=== PATIENT | male | born 1955 | race Caucasian/White ===

== ENCOUNTER → 2019-09-13 | Outpatient (CLI) | payer BC, OTHER | LOC: SJCVCIMAG 07:41 → NUC 09:47 → SJCVCIMAG 11:47 | DX: I65.23 Occlusion and stenosis of bilateral carotid arteries (principal); I35.1 Nonrheumatic aortic (valve) insufficiency; I25.10 Atherosclerotic heart disease of native coronary artery without angina pectoris; I10 Essential (primary) hypertension; E78.5 Hyperlipidemia, unspecified; Z79.82 Long term (current) use of aspirin; Z79.899 Other long term (current) drug therapy; Z82.49 Family history of ischemic heart disease and other diseases of the circulatory system ==

== ENCOUNTER → 2020-04-01 | Outpatient (CLI) | payer BC, OTHER ==
[~2020-04-01] MED LIST: ASA81BEC PO; FAMCYCLOVIR 50500 M1 PO; LISINOPRIL-HCT1 EAC1 PO; LOPRESSOR50 MG PO; REPATHA SU140 MG/1 M; REVATIO20 MG PO
== END ==
LOC: LAB 08:00
PROVIDERS: ATTEND Internal Medicine
DX: Z01.812 Encounter for preprocedural laboratory examination (principal); Z20.828 Contact with and (suspected) exposure to other viral communicable diseases

== ENCOUNTER → 2020-04-03 | Outpatient (CLI) | payer BC, OTHER ==
[~2020-04-03] VITALS: Ht 167.6 cm; Wt 78.9 kg
[2020-04-03 07:11] VITALS: BP 161/96
--- NOTE | 2020-04-03 09:58 | CATHLAB ---
[facility] [place] [address] INVASIVE PROCEDURE REPORT Name: ELIF WARD Room #: REG LIA Buitrago.#: [id number] Admission: 04/03/20 Attend Phys: Archie Verde MD, Discharge: Date of : 59 Report #: [id number] THIS REPORT FOR: cc: Clovis Schwartz MD, Samuel D. MD Lundgren, Craig H. MD [facility] ~ APPROVED REPORT Study performed: 04/03/2020 07:55:55 Patient Details Patient Status: Out-Patient Room #: The patient is a 64 year-old male Event Personnel Archie Verde Planishing Hammer Operator, Leonel Brown RN RN, Marisol Boss Paschal, Ja'net RTR Monitor Procedures Performed Left Heart Cath w/or w/o Coronaries [id number] [facility] Supravalvular Aortography Injection [id number] ISVA Art Access - R femoral artery* Hemostasis w/ Mynx 28697 Initial Mod Sed Same Phys/QHP Gr5y 303218 69864 Mod Sed Same Phys/QHP Ea 443174 Indication Chest pain Procedure Narrative The patient was brought electively to the Cardiac Catheterization Laboratory and was prepped and draped in a sterile manner. The Right Groin^ was infiltrated with 1% Lidocaine subcutaneous anesthesia. A PINNACLE 6FR Sheath #[id number] sheath was inserted into the RFA^. Coronary angiography was performed using coronary diagnostic catheters. The left coronary system was accessed and visualized with a 6FR JL 4.5 #[id number] catheter. The left ventricle was accessed and visualized with a PIGTAIL catheter. Closure device was deployed with a Fr MYNXGRIP 6/7F #[id number]. The patient tolerated the procedure well and there were no complications associated with the procedure. There was no hematoma. Attempted to visualize the right coronary system with a JR4, 6FR 3DRC and 6FR AR MOD. Intraoperative Conscious Sedation Sedation start time: 8:22 Case end Time: 9:20 [facility] [address] [place] [address] INVASIVE PROCEDURE REPORT Name: ELIF WARD Room #: REG [facility]#: [id number] Admission: 04/03/20 Attend Phys: Archie Verde, Discharge: Date of : 59 Report #: [id number] Fentanyl 100 mcg Versed 2 mg Fluoro Time: 16.90 minutes Dose: DAP 22864.00 cGycm2 2753 mGy Contrast Type and Amount: Omnipaque 315 ml Coronary Angiography The patient's coronary anatomy is left dominant. Diagnostic Cath Left Main Short with moderate plaquing LAD Densely calcified LAD throughout its proximal and mid portions. 75% ostial LAD stenosis with moderate diffuse calcific stenosis throughout the proximal portion of the LAD Circumflex 80% ostial circumflex stenosis 95% proximal circumflex before the origin of the first marginal branch. OM1 85% ostial OM1 branch stenosis. This is a large bifurcating vessel L PDA No significant disease within a small posterior descending branch L IDALIA Mild plaquing Right Coronary Small, nondominant and probably occluded at the aorta. Left Ventriculography The left ventricle is normal in size with normal contractility. The left ventricular ejection fraction is estimated to be 60-65%. Left ventricular wall motion abnormalities are not present. There is no mitral insufficiency. Multiple attempts with multiple catheters were used at to engage the right coronary without success. Aortography was performed in both the JERICHO and REEVES view projections without identification of the right coronary. Trileaflet aortic valve without insufficiency. This is a left dominant system. I suspect the right coronary is small, nondominant and probably occluded at the aorta. Hemodynamics The aortic pressure is 127/64 mmHg with a mean of 89 mmHg. The left ventricular pressure is 148/10 mmHg with a mean of mmHg. The left ventricular end diastolic pressure is 22 mmHg. Pullback from the left ventricle to the aorta revealed no gradient across the aortic valve. [facility] [address] [place] [address] INVASIVE PROCEDURE REPORT Name: ELIF WARD Room #: REG Philippe#: [id number] Admission: 04/03/20 Attend Phys: Archie Verde, Discharge: Date of : 59 Report #: [id number] Conclusion 1. Normal global and regional left ventricular systolic function. EF 65% 2. Severe densely calcified multivessel coronary disease. Left dominant circulation 3. The right coronary was probably small, nondominant and occluded the aorta. This was not selectively engaged and not seen by aortography. Recommendations CABG <ELECTRONICALLY SIGNED> By: Archie Verde MD, FACC 04/03/20957 7 7 Archie Verde MD, FACC /INF
== END ==
LOC: CATH 06:43
PROVIDERS: ATTEND Internal Medicine
DX: R07.9 Chest pain, unspecified (principal); I25.119 Atherosclerotic heart disease of native coronary artery with unspecified angina pectoris; E78.5 Hyperlipidemia, unspecified; I10 Essential (primary) hypertension; I65.23 Occlusion and stenosis of bilateral carotid arteries; Z79.899 Other long term (current) drug therapy; Z79.82 Long term (current) use of aspirin; Z98.890 Other specified postprocedural states

== ENCOUNTER → 2020-04-17 | Outpatient (CLI) | payer BC, OTHER | LOC: SJCVCIMAG 10:37 | PROVIDERS: ATTEND Surgery Vascular Surgery | DX: Z01.818 Encounter for other preprocedural examination (principal); I25.10 Atherosclerotic heart disease of native coronary artery without angina pectoris ==

== ENCOUNTER → 2020-04-18 | Outpatient (CLI) | payer BC, OTHER ==
[~2020-04-18] MED LIST changes: +FERREX 150 PLU1 EAC1 PO; +LISINOPRIL10 MG PO; +PACERONE 200 M200 M1 PO; +TOPROL XL50 MG PO
== END ==
LOC: LAB 07:26
PROVIDERS: ATTEND Surgery Vascular Surgery
DX: Z01.812 Encounter for preprocedural laboratory examination (principal); Z20.828 Contact with and (suspected) exposure to other viral communicable diseases

== ENCOUNTER 2020-04-24 06:05 | Inpatient (IN) | payer BC, OTHER ==
--- NOTE | 2020-04-18 13:37 | EKG ---
[facility] [place] [address] ELECTROCARDIOGRAM REPORT Name: ELIF WARD Room #: PRE IN M.R.#: [id number] Admission: Attend Phys: Gianni Garcia MD Discharge: Date of : 59 Report #: [id number] THIS REPORT FOR: cc: Clovis Schwartz MD, Samuel D. MD Santiago,Zack MURPHY [facility] ~ THIS REPORT FOR: //name// [facility] Test Date: 2020-04-18 Test Time: 13:28:11 Pat Name: ELIF WARD Department: Room: Gender: Engineer Exhauster: GALI LEMONS : 1955 Requested By: Gianni Garcia Order Number: [id number] MD: Zack Blum Measurements Intervals [place] Rate: 68 P: 12 ND: 171 QRS: -4 QRSD: 85 T: 1 QT: 372 QTc: 396 Interpretive Statements Sinus rhythm Abnormal R-wave progression, early transition Borderline T abnormalities, inferior leads No previous ECG available for comparison Electronically Signed On 04-18-2020 13:37:50 CDT by Zack Blum [email or web address] <ELECTRONICALLY SIGNED> By: Zack Blum MD, [facility] 04/18/20 1337 1328 1328 Zack Blum MD, [facility] /EPI
[2020-04-18 13:49] LABS: URINE BILIRUBIN NEGATIVE (Negative); URINE BLOOD TRACE (Negative); URINE CLARITY CLEAR; URINE COLOR YELLOW; URINE GLUCOSE-RANDOM* NEGATIVE (Negative); URINE KETONES NEGATIVE (Negative); URINE LEUKOCYTES-REFLEX NEGATIVE (Negative); URINE NITRITE-REFLEX NEGATIVE (Negative); URINE PROTEIN (DIPSTICK) NEGATIVE (Negative); URINE SPECIFIC GRAVITY >= 1.030 (1.005-1.035); URINE UROBILINOGEN 0.2 E.U./dl (0.2-1.0)
[2020-04-18 13:49] LABS: HEMATOCRIT 44.2 % (42.0-52.0); HEMOGLOBIN 14.7 gm/dL (14.0-18.0); MCH 31.3 pg (26.0-34.0); MCHC 33.2 g/dL (28.0-37.0); MCV 94.2 fL (80.0-100.0); PLATELET COUNT 284 thou/uL (150-400); RDW 13.8 % (10.5-14.5); WBC 4.8 thou/uL (4.0-11.0)
[2020-04-18 14:04] LABS: APTT 30.8 Seconds (24.5-32.8); CREATININE 0.9 mg/dL (0.7-1.3); POTASSIUM 4.5 mmol/L (3.5-5.1); PROTIME 10.2 Seconds (9.3-11.4); TOTAL BILIRUBIN 0.5 mg/dL (0.2-1.0); TOTAL PROTEIN 8.6 g/dL (6.4-8.2)
[2020-04-18 14:16] LABS: ABSOLUTE NEUTROPHILS 2.6 thou/uL (1.4-8.2)
[2020-04-19 04:06] LABS: GLYCOHEMOGLOBIN (HGB A1C) 5.6 % (4.8-5.6)
[2020-04-24] VITALS (10 sets, daily range): BP systolic 104–160; BP diastolic 61–88
[~2020-04-24] VITALS: Ht 167.6 cm; Wt 79.5 kg
[~2020-04-24 06:05] MED LIST changes: -FERREX 150 PLU1 EAC1 PO; -LISINOPRIL10 MG PO; -PACERONE 200 M200 M1 PO; -TOPROL XL50 MG PO
[2020-04-24 13:21] LABS: HEMATOCRIT 27.3 % (42.0-52.0); HEMOGLOBIN 9.3 gm/dL (14.0-18.0); MCV 94.1 fL (80.0-100.0); RBC 2.9 mil/uL (4.50-6.00); RDW 13.4 % (10.5-14.5); WBC 8.6 thou/uL (4.0-11.0)
[2020-04-24 13:34] LABS: APTT 29.8 Seconds (24.5-32.8); FIBRINOGEN 128.1 mg/dL (210-360); INR 1.5; PROTIME 15.2 Seconds (9.3-11.4)
[2020-04-24 14:55] LABS: BE(vivo) -5.3 mmol/L (-2 to +3); HCO3 18.8 mmol/L (22.0-26.0); PCO2 31.3 mmHg (35.0-45.0); PO2 164.8 mmHg (80.0-100.0); pH 7.396 (7.360-7.450); sO2 99.1 % (92.0-98.0)
[2020-04-24 15:02] LABS: HEMATOCRIT 26.3 % (42.0-52.0); HEMOGLOBIN 8.9 gm/dL (14.0-18.0); MCH 31.3 pg (26.0-34.0); MCHC 33.9 g/dL (28.0-37.0); MCV 92.4 fL (80.0-100.0); RBC 2.84 mil/uL (4.50-6.00); RDW 13.3 % (10.5-14.5); WBC 11.2 thou/uL (4.0-11.0)
[2020-04-24 15:08] LABS: CALCIUM 8.1 mg/dL (8.5-10.1); POTASSIUM 5.1 mmol/L (3.5-5.1)
[2020-04-24 15:09] LABS: MAGNESIUM 2.5 mg/dL (1.8-2.4)
[2020-04-24 15:52] LABS: APTT 26.5 Seconds (24.5-32.8); INR 1.2; PROTIME 12.4 Seconds (9.3-11.4)
[2020-04-24 18:02] LABS: BE(vivo) -3.4 mmol/L (-2 to +3); HCO3 19.1 mmol/L (22.0-26.0); PCO2 25.5 mmHg (35.0-45.0); PO2 191.2 mmHg (80.0-100.0); pH 7.492 (7.360-7.450); sO2 99.4 % (92.0-98.0)
--- NOTE | 2020-04-24 19:25 | NUR ---
1440-RECEIVED FROM OR W OPEN HEART TEAM, IN ATTENDANCE.--VW
--- NOTE | 2020-04-24 19:30 | NUR ---
1440-SEE [facility] FOR VS,GTT TITRATIONS,SIG EVENTS,HRLY OUTPUTS.--VW
--- NOTE | 2020-04-24 19:45 | NUR ---
Dr Garcia at the bedside, noting chest tube output, and instructed nurse to call if output exceeds 100 ml's per hour. At 2000 hrs, output of each tube was only 20 ml's each. Will continue to monitor.
[2020-04-24 21:29] LABS: HCO3 20.8 mmol/L (22.0-26.0); PCO2 36.5 mmHg (35.0-45.0); PO2 127.2 mmHg (80.0-100.0); pH 7.373 (7.360-7.450); sO2 98.5 % (92.0-98.0)
[2020-04-24 22:09] LABS: HCO3 17.8 mmol/L (22.0-26.0); PCO2 32.8 mmHg (35.0-45.0); PO2 111.7 mmHg (80.0-100.0); pH 7.353 (7.360-7.450)
[2020-04-25] VITALS (19 sets, daily range): BP systolic 90–139; BP diastolic 41–73
[2020-04-25 05:51] LABS: HEMATOCRIT 20.6 % (42.0-52.0); HEMOGLOBIN 7.1 gm/dL (14.0-18.0); MCH 32.2 pg (26.0-34.0); MCHC 34.5 g/dL (28.0-37.0); MCV 93.4 fL (80.0-100.0); RBC 2.21 mil/uL (4.50-6.00); RDW 13.1 % (10.5-14.5); WBC 7.6 thou/uL (4.0-11.0)
[2020-04-25 06:02] LABS: CALCIUM 8.2 mg/dL (8.5-10.1); CREATININE 1.3 mg/dL (0.7-1.3); MAGNESIUM 2.5 mg/dL (1.8-2.4); POTASSIUM 4.3 mmol/L (3.5-5.1)
[2020-04-25 06:37] LABS: POC BE 0 mmol/L (-2.0 to +3.0); POC CA IONIZED 5.4 mg/dL (4.5-5.3); POC GLUCOSE 104 mg/dL (70-99); POC HCO3 24.9 mmol/L (22.0-26.0); POC HEMOGLOBIN 9.9 g/dL (14.0-18.0); POC POTASSIUM 4.5 mmol/L (3.5-5.1); POC SODIUM 137 mmol/L (136-145); POC pCO2 40.4 mmHg (35.0-45.0); POC pH 7.399 (7.360-7.450)
[2020-04-25 06:37] LABS: POC BE 0 mmol/L (-2.0 to +3.0); POC GLUCOSE 121 mg/dL (70-99); POC HEMOGLOBIN 13.9 g/dL (14.0-18.0); POC POTASSIUM 5.2 mmol/L (3.5-5.1); POC SODIUM 135 mmol/L (136-145); POC pCO2 47.2 mmHg (35.0-45.0); POC pH 7.349 (7.360-7.450)
[2020-04-25 06:37] LABS: POC BE -1 mmol/L (-2.0 to +3.0); POC CA IONIZED 4.4 mg/dL (4.5-5.3); POC GLUCOSE 113 mg/dL (70-99); POC HCO3 23.6 mmol/L (22.0-26.0); POC HEMOGLOBIN 11.2 g/dL (14.0-18.0); POC POTASSIUM 5.4 mmol/L (3.5-5.1); POC SODIUM 134 mmol/L (136-145)
[2020-04-25 06:37] LABS: POC BE -2 mmol/L (-2.0 to +3.0); POC CA IONIZED 4.8 mg/dL (4.5-5.3); POC GLUCOSE 131 mg/dL (70-99); POC HCO3 22.6 mmol/L (22.0-26.0); POC HEMOGLOBIN 9.9 g/dL (14.0-18.0); POC POTASSIUM 4.5 mmol/L (3.5-5.1); POC SODIUM 139 mmol/L (136-145); POC pCO2 37.3 mmHg (35.0-45.0)
[2020-04-25 06:37] LABS: POC BE -2 mmol/L (-2.0 to +3.0); POC CA IONIZED 4.3 mg/dL (4.5-5.3); POC GLUCOSE 110 mg/dL (70-99); POC HEMOGLOBIN 10.2 g/dL (14.0-18.0); POC POTASSIUM 5.4 mmol/L (3.5-5.1); POC SODIUM 136 mmol/L (136-145); POC pH 7.367 (7.360-7.450)
[2020-04-25 06:37] LABS: POC BE 0 mmol/L (-2.0 to +3.0); POC GLUCOSE 100 mg/dL (70-99); POC HCO3 24.2 mmol/L (22.0-26.0); POC HEMOGLOBIN 13.9 g/dL (14.0-18.0); POC SODIUM 137 mmol/L (136-145); POC pCO2 37.6 mmHg (35.0-45.0); POC pH 7.415 (7.360-7.450)
[2020-04-25 06:38] LABS: POC BE 1 mmol/L (-2.0 to +3.0); POC CA IONIZED 4.5 mg/dL (4.5-5.3); POC GLUCOSE 117 mg/dL (70-99); POC HCO3 27.4 mmol/L (22.0-26.0); POC HEMOGLOBIN 9.5 g/dL (14.0-18.0); POC POTASSIUM 5.1 mmol/L (3.5-5.1); POC SODIUM 138 mmol/L (136-145); POC pCO2 53.7 mmHg (35.0-45.0); POC pH 7.316 (7.360-7.450)
--- NOTE | 2020-04-25 07:46 | EKG ---
[facility] [place] [address] ELECTROCARDIOGRAM REPORT Name: ELIF WARD Room #: 248-P ADM IN M.R.#: [id number] Admission: 04/24/20 Attend Phys: Gianni Garcia MD Discharge: Date of : 59 Report #: [id number] THIS REPORT FOR: cc: Clovis Schwartz MD, Samuel D. MD Lundgren,Archie Mcmahon MD [facility] ~ THIS REPORT FOR: //name// [facility] Test Date: 2020-04-24 Test Time: 16:33:12 Pat Name: ELIF WARD Department: Room: 248 Gender: M Stencil Machine Operator: Tomás BRUNSON : 1955 Requested By: Shabbir Rangel Order Number: [id number] MD: Archie Verde Measurements Intervals [place] Rate: 85 P: 14 FL: 170 QRS: 20 QRSD: 71 T: 21 QT: 364 QTc: 433 Interpretive Statements Sinus rhythm Diffuse ST elevation, consider pericarditis Early R wave progression Compared to ECG 04/18/2020 13:28:[address] segment elevation is now present Electronically Signed On 04-25-2020 7:46:24 CDT by Archie Verde [email or web address] <ELECTRONICALLY SIGNED> By: Archie Verde MD, FACC 04/25/20 0746 1633 1633 Archie Verde MD, FACC /EPI
--- NOTE | 2020-04-25 07:54 | EKG ---
[facility] [address] ELECTROCARDIOGRAM REPORT Name: ELIF WARD Room #: 248-P ADM IN M.R.#: [id number] Admission: 04/24/20 Attend Phys: Gianni Garcia MD Discharge: Date of : 59 Report #: [id number] THIS REPORT FOR: cc: Clovis Schwartz MD, Samuel D. MD Lundgren,Archie Mcmahon MD [facility] ~ THIS REPORT FOR: //name// [facility] Test Date: 2020-04-25 Test Time: 07:31:52 Pat Name: ELIF WARD Department: Room: 248 P Gender: M Digital Recruiter: CHRISTIAN : 1955 Requested By: Shabbir Rangel Order Number: [id number] MD: Archie Verde Measurements Intervals [place] Rate: 105 P: 30 [place]: 160 QRS: -5 QRSD: 83 T: 3 QT: 321 QTc: 425 Interpretive Statements Sinus tachycardia Early R wave progression Diffuse ST elevation, consider pericarditis Compared to ECG 04/24/2020 16:33:12 No significant change was found Electronically Signed On 04-25-2020 7:54:24 CDT by Archie Verde [email or web address] <ELECTRONICALLY SIGNED> By: Archie Verde MD, FAC 04/25/20 0754 0 0 Archie Verde MD, FAC /EPI
--- NOTE | 2020-04-25 08:27 | NUR ---
RD consult received for diet education. S/P CABG x 4 on 04/24. Will assess diet education needs once out of ICU and at more appropriate time.
[2020-04-25 10:59] LABS: POC BE -3 mmol/L (-2.0 to +3.0); POC CA IONIZED 4.5 mg/dL (4.5-5.3); POC GLUCOSE 115 mg/dL (70-99); POC HCO3 23.2 mmol/L (22.0-26.0); POC HEMOGLOBIN 10.2 g/dL (14.0-18.0); POC SODIUM 136 mmol/L (136-145); POC pCO2 42.7 mmHg (35.0-45.0); POC pH 7.343 (7.360-7.450)
--- NOTE | 2020-04-25 15:39 | NUR ---
chart review. pod # 1 CABG. unable to visit with don charlton. pt has been un to chair. still has chest tubes, little slower moving noted per chart, independent prior to hospital. out of icu when ordered by MD. will cont following as needed for dc needs. dcp home.
--- NOTE | 2020-04-25 18:18 | NUR ---
0645 ASSUMED CARE OF PT. PAIN OUT OF CONTROL, PLAN TO START IV TYLENOL. BETTER TOLLERATED, HOLD NORCO WHILE ON IV TYLENOL. 1 UNIT PRBC GIVEN. UP TO CHAIR WITH THERAPY. BACK TO BED TO CA MEDS CT. POOR APPETITE. FRIEND GEORGE AT BEDSIDE. PT'S DEMEANOR MORE PLAYFUL. STATES HE IS STARTING TO FEEL LIKE HIMSELF AGAIN.
--- NOTE | 2020-04-25 19:05 | NUR ---
RECEIVED PATIENT REPORT FROM COLEEN TALBERT. ASSUMED PATIENT CARE AT THIS TIME. PATIENT RESTING COMFORTABLY IN BED AT THIS TIME; USING CELL PHONE. DENIES ANY NEEDS AT THIS TIME. LOAN ADMINISTRATOR LORRIE PRESENT AT BEDSIDE CHATTING WITH PATIENT. VSS. CURRENT ART LINE PRESSURE IS 121/54. SR/ST WITH HR 101. OXYGEN SATURATION 95% ON 2 L OXYGEN PER NASAL CANNULA. FALL PRECAUTIONS IN PLACE. CALL LIGHT IN REACH.
[2020-04-26] VITALS (12 sets, daily range): BP systolic 87–104; BP diastolic 61–76
[2020-04-26 04:53] LABS: HEMATOCRIT 23.7 % (42.0-52.0); MCH 31.4 pg (26.0-34.0); MCHC 33.8 g/dL (28.0-37.0); MCV 93.1 fL (80.0-100.0); RBC 2.54 mil/uL (4.50-6.00); RDW 15.1 % (10.5-14.5); WBC 9.7 thou/uL (4.0-11.0)
[2020-04-26 05:11] LABS: CALCIUM 8.8 mg/dL (8.5-10.1); POTASSIUM 4.2 mmol/L (3.5-5.1)
--- NOTE | 2020-04-26 07:30 | NUR ---
0700 Assummed care of patient from night nurse, Julissa TALBERT. Patient states that he has some mild pain in his chest and denies nausea at this time. Will continue to monitor.
--- NOTE | 2020-04-26 16:31 | NUR ---
RECIEVED REPORT FROM GRACIELA RN AND PT TRANSFERED TO ROOM 209. TRANSFERRED FROM WHEELCHAIR TO RECLINER WITHOUT DIFFICULTY. PLEURAL CHEST TUBE INTACT AND HOOKED TO 20CM SUCTION. PULLED 500 TO 750 ON IS. VSS, 2L NC. NO COMPLAINTS OF PAIN
--- NOTE | 2020-04-27 01:02 | NUR ---
ASSESSMENTS CHARTED, MEDS CHARTED GIVEN. PATIENT IN RECLINER AT START OF SHIFT. C/O CHRONIC BACK PAIN WHILE IN CHAIR. PATIENT MOVED TO BED FOR THE EVENING. DENIES PAIN AT INCISION SITE. ACCU CHECK AT HS DID NOT REQUIRE COVERAGE. UP WITH ASSIST OF ONE FOR CHEST TUBE ATTRIUM AND O2 TUBING. WIRES CAPPED, VEIN HARVEST SITES C/D/I. NO EDEMA. CHRONIC PAIN RATED AT 2-3. FALL PRECAUTIONS IN PLACE DURING SHIFT.
[2020-04-27 04:30] VITALS: BP 100/64
[2020-04-27 07:34] VITALS: BP 99/64
[2020-04-27 12:05] VITALS: BP 99/58
[2020-04-27 15:54] VITALS: BP 108/71
--- NOTE | 2020-04-27 16:21 | NUR ---
ASSESSMENT CHARTED. PT ALERT AND ORIENTED. CHEST TUBE AND PACER WIRE REMOVED THIS AM BY DR. HERNANDEZ. PT UP IN THE CHAIR. SR ON TELE. RT TREATMENT GIVEN ORDERED. LALI DRESSING INTACT. STERNUM PRECAUTION ENFORCED. NO CARDIAC OR RESPIRATORY DISTRESS NOTED. PROGRESSING WELL TOWARDS DISCHARGE GOAL.
[2020-04-27 20:09] VITALS: BP 112/70
[2020-04-28 04:06] LABS: CREATININE 1.1 mg/dL (0.7-1.3); POTASSIUM 4.4 mmol/L (3.5-5.1)
[2020-04-28 04:12] VITALS: BP 116/77
[2020-04-28 04:13] LABS: HEMOGLOBIN 8.4 gm/dL (14.0-18.0); MCH 31.5 pg (26.0-34.0); MCHC 33.8 g/dL (28.0-37.0); MCV 93.2 fL (80.0-100.0); RBC 2.68 mil/uL (4.50-6.00); RDW 14.9 % (10.5-14.5); WBC 7.9 thou/uL (4.0-11.0)
--- NOTE | 2020-04-28 06:39 | NUR ---
ASSESSMENTS CHARTED, MEDS CHARTED GIVEN. PATIENT UNABLE TO SLEEP DURING THE NIGHT, CALLED OUT FOR SLEEP MED AT 0330 AM. HAS NOT SLEPT WELL SINCE SURGERY. PT WANTS BLAND DIET, NO SPICES AND VANILLA ENSURE NOT CHOCOLATE. FALL PRECAUTIONS IN PLACE DURING SHIFT. DENIED PAIN.
--- NOTE | 2020-04-28 07:30 | EKG ---
[facility] [place] [address] ELECTROCARDIOGRAM REPORT Name: ELIF WADR Room #: 209-P ADM IN M.R.#: [id number] Admission: 04/24/20 Attend Phys: Gianni Garcia MD Discharge: Date of : 59 Report #: [id number] THIS REPORT FOR: cc: Clovis Schwartz MD, Samuel D. MD Lundgren,Archie Mcmahon MD [facility] ~ THIS REPORT FOR: //name// [facility] Test Date: 2020-04-28 Test Time: 07:05:29 Pat Name: ELIF WARD Department: Room: 209 P Gender: M Syrup Machine Laborer: CHRISTIAN : 1955 Requested By: Gianni Garcia Order Number: [id number] MD: Archie Verde Measurements Intervals [place] Rate: 93 P: 31 [place]: 135 QRS: -9 QRSD: 83 T: -6 QT: 351 QTc: 437 Interpretive Statements Sinus rhythm RSR' in V1 or V2, right VCD Probable left ventricular hypertrophy Inferior infarct, old Minimal diffuse ST elevation, consider pericarditis Compared to ECG 04/25/2020 07:31:52 ST segment elevation is less prominent Electronically Signed On 04-28-2020 7:30:19 CDT by Archie Verde [email or web address] <ELECTRONICALLY SIGNED> By: Archie Verde MD, [facility] 04/28/20729 4 4 Archie Verde MD, [facility] /EPI
[2020-04-28 11:40] VITALS: BP 133/75
--- NOTE | 2020-04-28 14:38 | HC ---
[facility] [place] [address] CONSULTATION Name: ELIF WARD Room #: 209-P [facility] IN M.R.#: [id number] Admission: 04/24/20 Attend Phys: Gianni Garcia MD Discharge: Date of : 59 Report #: [id number] THIS REPORT FOR: cc: Clovis Schwartz MD, Samuel D. MD Lundgren,Archie Mcmahon MD FACC ~ CC: Gianni Schwartz DATE OF SERVICE: 04/24/2020 He is being admitted on 04/24/2020 for bypass surgery. HISTORY OF PRESENT ILLNESS: The patient is a 64-year-old gentleman with hypertension, dyslipidemia and progressive midsternal chest pain. This pain has become limiting to him, especially over the past 6 weeks. Recent coronary angiography demonstrated normal ejection fraction with severe densely calcified multivessel coronary artery disease. He now presents for surgical revascularization. There have been no heart failure symptoms including orthopnea, paroxysmal nocturnal dyspnea, or lower extremity edema. No history of palpitations, near syncope or syncope. No history of tobacco dependency or diabetes. There is a strong family history of premature coronary artery disease. Father had bypass at the age of 55. He has a history of dyslipidemia and has been intolerant to statins. ALLERGIES: No known drug allergies. MEDICATIONS: Include aspirin 81 mg daily, evolocumab injections every 2 weeks, lisinopril 20 mg daily, metoprolol 50 mg daily. PAST MEDICAL HISTORY: Medical records have been reviewed and include a history of shoulder surgery, hypertension and dyslipidemia. SOCIAL HISTORY: He has never been a smoker. . FAMILY HISTORY: Notable for premature coronary artery disease. REVIEW OF SYSTEMS: All systems negative except as that noted above. PHYSICAL EXAMINATION: GENERAL: A pleasant gentleman in no distress. VITAL SIGNS: Blood pressure is 130/80, heart rate of 66 and regular, 5 feet 6 inches tall and 174 pounds. HEENT: There are neither xanthelasma, subcutaneous xanthomata, oral mucosal or [facility] [address] [place] [address] CONSULTATION Name: ELIF WARD Room #: 209[facility] IN .R.#: [id number] Admission: 04/24/20 Attend Phys: Gianni Garcia MD Discharge: Date of : 59 Report #: [id number] digital cyanosis or kyphoscoliosis present. CHEST: Clear to auscultation and percussion. CARDIAC: Regular rate and rhythm with normal S1, S2. No murmurs or rubs. ABDOMEN: Soft and nontender. EXTREMITIES: Without cyanosis, clubbing or edema. Radial pulses are 2+. NEUROLOGIC: He is alert with a nonfocal exam. LABORATORY DATA: Cholesterol is 126, HDL 46, LDL 46, triglycerides 187. EKG, sinus rhythm, normal tracing. Echocardiogram, normal ejection fraction with mild aortic sclerosis with mild aortic insufficiency. Carotid duplex, moderate bilateral stenoses (less than 40%). IMPRESSION: 1. Progressive exertional angina. 2. Severe densely calcified multivessel coronary artery disease with normal ejection fraction. 3. Hypertension. 4. Dyslipidemia. 5. Carotid stenosis, asymptomatic (less than 40%). 6. Statin intolerance. RECOMMENDATIONS: 1. Surgical revascularization. 2. Continued use of PCSK9 therapy given intolerance to statins. 3. Perioperative beta blockade. 4. We will follow along with you. Questions have been answered. Thank you for asking me to participate in his care. <ELECTRONICALLY SIGNED> By: Archie Verde MD, [facility] 04/28/20 1438 0942 1105 Archie Verde MD, FACC /nt
--- NOTE | 2020-04-28 17:38 | NUR ---
ASSESSMENT CHARTED - MEDS PER SEP - NO CO'S OF PAIN OR NAUSEA. NAGI DIET AND FLUIDS. UP WITH STBY ASSIST AMBULATED WITH PHYS THERAPY AND CARDIAC REHAB. LALI DRESSING TO CHEST - C/D/I. LEG DRESSING TO HARVEST SITES C/D/I. PT WITH VISITOR INTO TODAY. NO PLANS FOR PATIENT TO GO HOME IN THE AM. NO CO'S AT THE PRESENT TIME.
--- NOTE | 2020-04-28 23:58 | NUR ---
ASSESSMENTS CHARTED, MEDS CHARTED GIVEN. RESTING IN RECLINER DURING SHIFT. PATIENT IS FEELING GOOD, WORKED HARD TODAY. ATE TODAY NOW THAT HE IS GETTING A BLAND DIET, HIS CHOICE. RECEIVED A SLEEPING PILL TONIGHT TO HELP HIM SLEEP. FALL PRECAUTIONS IN PLACE. DENIED PAIN.
[2020-04-29 04:50] VITALS: BP 110/72
[2020-04-29] MEDS ORDERED: LISINOPRIL10 MG PO (07:41)
[2020-04-29] MEDS ORDERED: TOPROL XL50 MG PO (07:41)
[2020-04-29] MEDS ORDERED: PACERONE 200 M200 M1 PO (07:41)
[2020-04-29 08:09] VITALS: BP 125/79
[2020-04-29] MEDS ORDERED: FERREX 150 PLU1 EAC1 PO (11:03)
[2020-04-29 11:58] VITALS: BP 125/79
--- NOTE | 2020-04-29 12:59 | NUR ---
ASSESSMENT CHARTED - MEDS PER SEP - PT WITH CO'S OF R SIDED RIB PAIN GIVEN HYDROCODONE X 1 WITH GOOD RELIEF. AMBULATING IN THE HALLS - UP IN ROOM - SHOWERED THIS AM - LALI TO CHEST REPLACED. DRESSING TO LEGS LEFT OPEN TO THE AIR. NAGI DIET AND FLUIDS. PT HOME THIS AFTERNOON - INSTRUCTION RE HOME MEDS/ CARE AND FOLLOW UP GIVEN TO PATIENT AND SIG OTHER - STATED UNDERSTANDING OF INSTRUCTION GIVEN - PT LEFT UNIT VIA WHEEL CHAIR - HOME VIA PVT VEHICLE ACCOMPANIED BY SIG OTHER - NO CO'S AT TIMES OF D/C.
--- NOTE | 2020-04-29 15:15 | O ---
[facility] [place] [address] OPERATIVE REPORT Name: ELIF WARD Room #: 209-P [facility] IN M.R.#: [id number] Admission: 04/24/20 Attend Phys: Gianni Garcia MD Discharge: 04/29/20 Date of : 59 Report #: [id number] THIS REPORT FOR: cc: Clovis Schwartz MD, Samuel D. MD Forman, John M. MD ~ CC: Gianni Schwartz DATE OF SERVICE: 04/24/2020 PREOPERATIVE DIAGNOSIS: Coronary artery disease. POSTOPERATIVE DIAGNOSIS: Coronary artery disease. OPERATION: Coronary artery bypass x 4 including left internal mammary artery to left anterior descending artery, saphenous vein to marginal 1 and marginal 2 and saphenous vein to posterior descending artery and endoscopic harvest, left greater saphenous vein. SURGEON: Gianni Garcia MD EXECUTIVE TEAM LEADER: MICHELL Collier ANESTHESIA: General. INDICATIONS: The patient is a 64-year-old with coronary artery disease. The patient presents with exertional angina. Catheterization demonstrates a left dominant system with high-grade LAD and circumflex stenoses. Right coronary is nondominant and seems to be occluded flush at the aorta. Left ventricular function is satisfactory. FINDINGS AND TECHNIQUE: After general anesthesia was established, saphenous vein was harvested and prepared for use as a conduit. Exposure was obtained through median sternotomy. Left internal mammary artery was harvested. A pericardial well was made. Cannulation sutures were placed. Heparin was given. Aorta was cannulated. Right atrium was cannulated. Cardioplegia needle was positioned in the aortic root. Retrograde cardioplegic catheter was placed in coronary sinus. Cardiopulmonary bypass was established. The aorta was cross clamped. Antegrade and retrograde cardioplegia were given. Ice was poured in the pericardial well. The heart was stopped. During electromechanical arrest, the distal anastomoses were performed and end-to-side anastomosis was made between vein and the posterior descending artery. This was a 1.4 mm vessel. Cold cardioplegia was given. Separate segment of vein was sewn in end-to-side fashion to the second marginal artery. [facility] [address] [place] [address] OPERATIVE REPORT Name: ELIF WARD Room #: 209-P [facility] IN M.R.#: [id number] Admission: 04/24/20 Attend Phys: Gianni Garcia MD Discharge: 04/29/20 Date of : 59 Report #: [id number] This was a 1.5 mm vessel. Cold cardioplegia was given. Same segment of vein was sewn in end-to-side fashion to the first marginal artery. This was a 1.6 mm vessel. Cold cardioplegia was given. Left internal mammary artery was sewn in end-to-side fashion to the left anterior descending artery. This was diffusely diseased vessel and was a 1.5 mm vessel that was bypassed. The anastomosis was checked with the Doppler and with the temperature technique. Cold cardioplegia was given. Two proximal anastomoses were performed. When these were complete, warm retrograde cardioplegia was given followed by warm continuous blood to the coronary sinus. When this infusion was complete, the crossclamp was removed. Flow was reestablished. The anastomoses were inspected and found to be satisfactory. As the patient warmed, nice cardiac activity resumed. Chest tubes and pacing wires were placed. A marker was placed around the proximal anastomoses. When the patient was warm, he was weaned from cardiopulmonary bypass. Venous cannula was removed. Protamine was given, the aortic cannula was removed. Flows were measured in the bypass grafts. When hemostasis was satisfactory, the chest was closed in the usual fashion. The patient did have what appeared to be coagulopathic bleeding and platelets and plasma were ordered and the bleeding was largely from the soft tissue and above the pericardium. The patient tolerated the procedure well and was taken to the Intensive Care Unit in good condition. All counts were reported as correct. <ELECTRONICALLY SIGNED> By: Gianni Garcia MD 04/29/20 1515 0819 0832 Gianni Garcia MD /nt
== END 2020-04-29 12:37 | disposition home or self-care (01) | DRG 236 ==
LOC: ICU 06:05 → TBA 06:05 → PRE 08:14 → ICU 15:15 → PRE 16:06 → 2N 04-26 15:42
PROVIDERS: Physician Assistant; ADMIT Surgery Vascular Surgery; ATTEND Surgery Vascular Surgery
PROC: 30233R1 Transfusion of Nonautologous Platelets into Peripheral Vein, Percutaneous Approach (ICD-10-PCS; principal; 2020-04-24)
PROC: 30233N1 Transfusion of Nonautologous Red Blood Cells into Peripheral Vein, Percutaneous Approach (ICD-10-PCS; principal; 2020-04-24)
PROC: 05HY33Z Insertion of Infusion Device into Upper Vein, Percutaneous Approach (ICD-10-PCS; principal; 2020-04-24)
PROC: 021209W Bypass Coronary Artery, Three Arteries from Aorta with Autologous Venous Tissue, Open Approach (ICD-10-PCS; principal; 2020-04-24)
PROC: 02100Z9 Bypass Coronary Artery, One Artery from Left Internal Mammary, Open Approach (ICD-10-PCS; principal; 2020-04-24)
PROC: 06BQ4ZZ Excision of Left Saphenous Vein, Percutaneous Endoscopic Approach (ICD-10-PCS; principal; 2020-04-24)
PROC: 5A1221Z Performance of Cardiac Output, Continuous (ICD-10-PCS; principal; 2020-04-24)
PROC: 0BH17EZ Insertion of Endotracheal Airway into Trachea, Via Natural or Artificial Opening (ICD-10-PCS; principal; 2020-04-24)
PROC: 5A1935Z Respiratory Ventilation, Less than 24 Consecutive Hours (ICD-10-PCS; principal; 2020-04-24)
PROC: 30233K1 Transfusion of Nonautologous Frozen Plasma into Peripheral Vein, Percutaneous Approach (ICD-10-PCS; principal; 2020-04-24)
DX: I25.110 Atherosclerotic heart disease of native coronary artery with unstable angina pectoris (principal); D62 Acute posthemorrhagic anemia; J98.11 Atelectasis; I31.9 Disease of pericardium, unspecified; R53.1 Weakness; R73.9 Hyperglycemia, unspecified; I10 Essential (primary) hypertension; E78.5 Hyperlipidemia, unspecified; Z79.899 Other long term (current) drug therapy
CPT/HCPCS: 10081; 10204; 47000; 47001; 47002; 47297; 50010; 50249; 50409; 50456; 50498; 50668; 51301; 52131; 52259; 52287; 52314; 53327; 53358; 54118; 56455; 56524; 56525; 56526; 56527; 56528; 56531; 56534; 56668; 56719; 56760; 56898; 57093; 57116; 57167; 62110; 62950; 65003; 65020; 65047; 65090; 65120; 65135

== ENCOUNTER → 2020-09-25 | Outpatient (CLI) | payer BC ==
[~2020-09-25] MED LIST changes: +ASPIRIN325 PO; +EFFIENT10 MG PO; +FERREX 150 PLU1 EAC1 PO; +LISINOPRIL10 MG PO; +PACERONE 200 M200 M1 PO; +TOPROL XL50 MG PO
== END ==
LOC: SJCVCIMAG 11:26
PROVIDERS: ATTEND Internal Medicine
DX: I25.10 Atherosclerotic heart disease of native coronary artery without angina pectoris (principal); R00.0 Tachycardia, unspecified; I10 Essential (primary) hypertension; E78.5 Hyperlipidemia, unspecified; Z95.1 Presence of aortocoronary bypass graft

== ENCOUNTER → 2020-09-26 | Outpatient (CLI) | payer BC ==
[~2020-09-26] MED LIST changes: -ASPIRIN325 PO; -EFFIENT10 MG PO
== END ==
LOC: LAB 13:48
PROVIDERS: ATTEND Internal Medicine
DX: Z01.812 Encounter for preprocedural laboratory examination (principal); Z20.822 Contact with and (suspected) exposure to COVID-19

== ENCOUNTER 2020-09-30 06:32 | Observation (INO) | payer BC ==
[~2020-09-30] VITALS: Ht 167.6 cm; Wt 80.1 kg
[2020-09-30] VITALS (14 sets, daily range): BP systolic 111–138; BP diastolic 72–91
[2020-09-30] MEDS ORDERED: EFFIENT10 MG PO (10:19)
[2020-09-30] MEDS ORDERED: ASPIRIN325 PO (10:23)
--- NOTE | 2020-09-30 11:44 | CATHLAB ---
[facility] [place] [address] INVASIVE PROCEDURE REPORT Name: ELIF WARD Room #: 201-P [facility] M.RSubhash#: [id number] Admission: 09/30/20 Attend Phys: Archie Verde MD, Discharge: Date of : 59 Report #: [id number] THIS REPORT FOR: cc: Clovis Schwartz MD, Samuel D. MD Lundgren, Craig H. MD [facility] ~ APPROVED REPORT Study performed: 09/30/2020 07:46:37 Patient Details Patient Status: Out-Patient Room #: The patient is a 65 year-old male Event Personnel Archie Verde Electrotherapist, Ting Jackson RN RN, Jami Chambers RTR, Lorelei Trinidad Jordan RTR Monitor Procedures Performed Art Access - R femoral artery* Left Heart Cath Coronaries, Bypass Grafts 5772064 LHCCORCABG KALINA Place w/wo Plasty Single CIRC 592938 Hemostasis w/ Mynx 86573 Initial Mod Sed Same Phys/QHP Gr5y 440131 28817 Mod Sed Same Phys/QHP Ea 644066 Indication Chest pain Risk Factors Coronary Artery Disease Previous Procedures/Diagnoses Previous CABG Procedure Narrative The patient was brought urgently to the Cardiac Catheterization Laboratory and was prepped and draped in a sterile manner. The Right Groin^ was infiltrated with 1% Lidocaine subcutaneous anesthesia. A PINNACLE 6FR Sheath #[id number] sheath was inserted into the RFA^. Coronary angiography was performed using coronary diagnostic catheters. The left coronary system was accessed and visualized with a 6FR JL 4.5 #[id number] catheter. The left ventricle was accessed and visualized with a 6FR PIGTAIL catheter. Left ventricular/Aortic Valve gradient assessed via catheter pullback. Left ventriculogram was [facility] [email or web address] [address] INVASIVE PROCEDURE REPORT Name: ELIF WARD CATERINA Room #: [address] [place] [address] [place] ..#: [id number] Admission: 09/30/20 Attend Phys: Archie Verde, Discharge: Date of : 59 Report #: [id number] performed in 30 degree projection. Closure device was deployed with a 6 Fr MYNXGRIP 6/7F #[id number]. The patient tolerated the procedure well and there were no complications associated with the procedure. There was no hematoma. 6Fr AR MOD diagnostic catheter was inserted. 6Fr IM diagnostic catheter was inserted to access and visualize the SANTANA graft. Intraoperative Conscious Sedation Sedation start time: 0755 Case end Time: 1002 Fentanyl 200 mcg Versed 3.0 mg Fluoro Time: 33.58 minutes Dose: DAP 30880.00 cGycm2 4035 mGy Contrast Type and Amount: Omnipaque 555 ml Coronary Angiography The patient's coronary anatomy is left dominant. [place] Artery Percent Stenosis Occluded sequential vein graft to the OM1 and OM 2. Occluded vein graft to the posterior descending of the dominant circumflex Diagnostic Cath Left Main Short left main with moderate plaquing LAD Tubular 85% ostial LAD stenosis Moderately calcified 75% proximal to mid LAD stenosis Widely patent left internal mammary to the LAD. The distal anastomotic site was widely patent with excellent runoff into the LAD. Circumflex Critical 95% ostial circumflex stenosis OM1 Critical 95% mid circumflex stenosis involving the origin of the first marginal branch Moderately long variable 50-60% stenosis involving the first marginal branch Right Coronary Nondominant, occluded. Not injected Left Ventriculography The left ventricle is normal in size with normal contractility. The left ventricular ejection fraction is estimated to be 60-65%. Left ventricular wall motion abnormalities are not present. There is no mitral insufficiency. Hemodynamics The aortic pressure is 137/57 mmHg with a mean of [address] [facility] [address] [place] [address] INVASIVE PROCEDURE REPORT Name: ELIF WARD Room #: 201-P [facility] IN [facility]#: [id number] Admission: 09/30/20 Attend Phys: Archie Verde, Discharge: Date of : 59 Report #: [id number] ventricular pressure is 120/6 mmHg with a mean of mmHg. The left ventricular end diastolic pressure is 18 mmHg. PCI Technique Lesion Anticoagulation was achieved with Heparin,, Integrilin. Patient was preloaded with Effient. Percutaneous coronary intervention was performed on the mid circumflex extending into first obtuse marginal branch segment. The lesion stenosis prior to intervention was 95% with ROSA 3 flow. A LAUNCHER 6FR EBU 4 #[id number] Guide Catheter was used to engage the CIRCUMFLEX ostium. A Luge Wire .014 x 182CM #[id number] Interventional Guidewire was used to cross the lesion. BALLOON DILATION A Balloon catheter Euphora RX 2.5 x 12 #[id number] was inserted and inflated up to 12.00atm for 62seconds. Additional Inflation: 10.00atm for 30seconds. Additional Inflation: 6.00atm for 20seconds. A Balloon catheter NC Trek 2.5ecy10yn was inserted and inflated up to 8 brianna for 34 sec. Additional inflation: 16 brianna for 45 sec. Focal dissection at the origin of the marginal branch, this segment was stented STENT DEPLOYMENT A drug-eluting stent RESOLUTE MARNIE RX 2.5 X 12 #[id number] was inserted and inflated up to 12.00atm for 33seconds. POST STENT DEPLOYMENT BALLOON DILATION A Balloon catheter TREK NC RX 2.75 X 12 #[id number] was inserted and inflated up to 14.00atm for 43seconds. Additional Inflation: 16.00atm for 35seconds. Additional Inflation: 14.00atm for 22seconds. Additional inflation: 14 brianna for 44 sec. Additional inflation: 16 brianna for 40 sec. Additional inflation: 14 brianna for 21 sec. Final angiography reveals 0 % stenosis with ROSA 3 flow. PCI Technique Lesion 2 Percutaneous Coronary Intervention was performed on the proximal circumflex artery segment. Patient was preloaded with Effient. The lesion stenosis prior to intervention was 95% with ROSA 3 flow. A LAUNCHER 6FR EBU 4 #[id number] Guide Catheter was used to engage the CIRCUMFLEX ostium. A Luge Wire .014 x 182CM #[id number] Interventional Guidewire was used to cross the lesion. Balloon Dilation A Balloon catheter Euphora RX 2.5 x 12 #[id number] was inserted and inflated up to 12atm for 22seconds. Additional Inflation: 16.00atm for 34seconds. Additional Inflation: 16.00atm for 33seconds. A [facility] [place] [address] INVASIVE PROCEDURE REPORT Name: ELIF WARD Room #: 201-P [facility] IN M.R.#: [id number] Admission: 09/30/20 Attend Phys: Archie Verde, Discharge: Date of : 59 Report #: [id number] balloon catheter NC Trek 2.03ozj21ih was inserted and inflated up to 22 brianna for 30 sec. Additional inflation: 22 brianna for 23 sec. Additional inflation: 22 brianna for 28 sec. Stent Deployment A drug-eluting stent RESOLUTE MARNIE RX 3.0 X 15 #[id number] was inserted and inflated up to 12.00atm for 31seconds. Post Stent Deployment Balloon Dilation A Balloon catheter TREK NC RX 3.0 X 12 #[id number] was inserted and inflated up to 18.00atm for 33seconds. Additional Inflation: 16.00atm for 19seconds. Additional Inflation: 22.00atm for 30seconds. Final angiography reveals 0 % stenosis with ROSA 3 flow. Conclusion 1. Normal global and regional left ventricular systolic function. EF 60% 2. Severe andreafski coronary disease. Left dominant circulation 3. Patent left internal mammary to the LAD 4. Occluded sequential vein graft to the first and second marginal branch, occluded vein graft to the posterior descending 5. Stenting of the ostial circumflex with a 3.0 x 15 mm Resolute stent, stenting of mid circumflex extending into OM1 2.5 x 12 mm Resolute stent Recommendations Aggressive Medical Therapy <ELECTRONICALLY SIGNED> By: Archie Verde MD, [facility] 09/30/20 1143 1143 1143 Archie Verde MD, [facility] /INF
--- NOTE | 2020-09-30 14:12 | EKG ---
[place] [address] [facility] [facility] [place] [address] ELECTROCARDIOGRAM REPORT Name: ELIF WARD Room #: 201-[facility]..#: [id number] Admission: 09/30/20 Attend Phys: Archie Verde MD, Discharge: Date of : 59 Report #: [id number] [facility] [place] [place] Test Date: 2020-09-30 Test Time: 10:32:46 Pat Name: ELIF WARD Department: Room: 201 Gender: M Nursing Agency Manager: SBULKELIN : 1955 Requested By: Archie Verde Order Number: [id number] : Zack Blum Measurements Intervals [place] Rate: 61 P: 7 NH: 198 QRS: 1 QRSD: 88 T: 5 QT: 407 QTc: 410 Interpretive Statements Sinus rhythm Abnormal R-wave progression, early transition Compared to ECG 04/28/2020 07:05:29 Myocardial infarct finding no longer present ST (T wave) deviation no longer present Electronically Signed On 09-30-2020 14:12:53 HOSTAGE NEGOTIATOR by Zack Blum [email or web address] <ELECTRONICALLY SIGNED> By: Zack Blum MD, [facility] 09/30/20 1412 1032 103 Zack Blum MD, [facility] /EPI
[2020-10-01 03:29] VITALS: BP 103/75
[2020-10-01 05:29] LABS: HEMATOCRIT 42.7 % (42.0-52.0); HEMOGLOBIN 13.8 gm/dL (14.0-18.0); MCH 29.4 pg (26.0-34.0); MCHC 32.3 g/dL (28.0-37.0); MCV 91.1 fL (80.0-100.0); RBC 4.69 mil/uL (4.50-6.00); RDW 14.9 % (10.5-14.5); WBC 6.2 thou/uL (4.0-11.0)
[2020-10-01 05:57] LABS: ALBUMIN 3.5 g/dL (3.4-5.0); ANION GAP 10 mmol/L (7-16); BUN 11 mg/dL (7-18); CALCIUM 8.9 mg/dL (8.5-10.1); CHLORIDE 101 mmol/L (98-107); CHOLESTEROL 98 mg/dL (<200); CO2 24 mmol/L (21-32); CREATININE 1.2 mg/dL (0.7-1.3); GLUCOSE 94 mg/dL (74-106); HDL CHOLESTEROL 37 mg/dL (>40); LDL CHOLESTEROL 26 mg/dL (<100); POTASSIUM 3.8 mmol/L (3.5-5.1); SGOT 23 U/L (15-37); SGPT 25 U/L (30-65); SODIUM 135 mmol/L (136-145); TC:HDL 2.6 Ratio (Not establshd); TOTAL BILIRUBIN 0.6 mg/dL (0.2-1.0); TOTAL PROTEIN 7.4 g/dL (6.4-8.2); TRIGLYCERIDE 177 mg/dL (<150); TROPONIN-I 0.11 ng/mL (<0.06); VLDL 35 mg/dL (<40)
[2020-10-01 06:07] LABS: SERUM ASSESSMENT Clear
--- NOTE | 2020-10-01 07:15 | EKG ---
[place] [address] [address] [facility] [place] [address] ELECTROCARDIOGRAM REPORT Name: ELIF WARD Room #: 201-[facility]..#: [id number] Admission: 09/30/20 Attend Phys: Archie Verde MD, Discharge: Date of : 59 Report #: [id number] [facility] Test Date: 2020-10-01 Test Time: 07:01:09 Pat Name: ELIF WARD Department: Room: 201 P Gender: M Hand Polisher: SBMALCOLM : 1955 Requested By: Archie Verde Order Number: [id number] MD: Zack Blum Measurements Intervals [place] Rate: 76 P: 14 NM: 193 QRS: -3 QRSD: 89 T: 10 QT: 369 QTc: 415 Interpretive Statements Sinus rhythm Abnormal R-wave progression, early transition Compared to ECG 09/30/2020 10:32:46 No significant changes Electronically Signed On 10-01-2020 7:15:21 LANDSCAPE ARCHITECT by Zack Blum [email or web address] <ELECTRONICALLY SIGNED> By: Zack Blum MD, [facility] 10/01/20714 0 0 Zack Blum MD, FACC /EPI
[2020-10-01 07:22] VITALS: BP 110/66
--- NOTE | 2020-10-01 07:50 | D ---
[facility] [place] [address] DISCHARGE SUMMARY Name: ELIF WARD Room #: 201-P [facility] Pop Paez#: [id number] Admission: 09/30/20 Attend Phys: Archie Verde MD, Discharge: Date of : 59 Report #: [id number] THIS REPORT FOR: cc: Clovis Schwartz MD, Samuel D. MD Lundgren,Archie Mcmahon MD FAC ~ DISCHARGE DIAGNOSES: 1. Unstable angina. 2. Prior 4-vessel bypass surgery with failure of the vein grafts; patent left internal mammary to the left anterior descending. 3. Severe bill moore's slough coronary artery disease with stenting of the ostial circumflex with a 3.0 x 15 mm Resolute stent, stenting of the mid circumflex extending into the first OM branch with a 2.5 x 12 mm Resolute stent. 4. Dyslipidemia. 5. Hypertension. 6. Statin intolerance. HISTORY OF PRESENT ILLNESS: For the complete details of the history of present illness, see dictated history and physical briefly. The patient is a 65-year-old gentleman who presented with exertional chest pain and underwent 4-vessel bypass surgery in 04/2020. This was with a left internal mammary to the LAD, sequential vein graft to the first marginal and second marginal branches and a separate vein graft to the posterior descending. For the past several weeks, he has noticed a midsternal chest pain which has been recurrent and predictable while doing motorcross. This is identical to what he experienced prior to his bypass surgery. Outpatient stress study was abnormal and revealed high risk features. He was admitted for coronary angiography. HOSPITAL COURSE: The patient was admitted and underwent coronary angiography. This demonstrated severe bill moore's slough coronary artery disease. There was a widely patent left internal mammary to the LAD. The vein graft to the OM1 and OM2 was occluded and the second vein graft to the posterior descending was occluded. This was a left dominant system. He underwent very complex angioplasty and stenting of the ostium of the circumflex and mid circumflex extending into the OM1. He was treated with aspirin, Effient, and Integrilin in the periprocedural setting. The full details of the angiographic procedure can be found under separate heading and dictation. His post-procedural course was uneventful. He was ambulating with excellent groin hemostasis at the time of discharge. DISCHARGE MEDICATIONS: Discharge medicines were reconciled. Aspirin 81 mg daily, Effient 10 mg daily, Repatha 140 inject every 14 days, lisinopril 10 mg daily, Toprol-XL 50 mg daily. DISCHARGE DIET: Low fat, low cholesterol, [place] [address] DISCHARGE SUMMARY Name: EILF WARD Room #: 201-P [facility] M.R.#: [id number] Admission: 09/30/20 Attend Phys: Archie Verde MD, Discharge: Date of : 59 Report #: [id number] DISCHARGE ACTIVITY: As instructed post-catheterization, follow up with myself in 4-6 weeks. DISCHARGE CONDITION: Stable and improved. <ELECTRONICALLY SIGNED> By: Archie Verde MD, FACC 10/01/20 0750 1033 1049 Archie Verde MD, FACC /nt
[2020-10-01 08:30] VITALS: BP 110/66
[2020-10-01 10:43] VITALS: BP 110/66
== END 2020-10-01 11:20 | disposition home or self-care (01) ==
LOC: CATH 06:32 → 2N 11:37 → CATH 12:10 → 2N 10-01 11:20
PROVIDERS: ADMIT Internal Medicine; ATTEND Internal Medicine
DX: I25.110 Atherosclerotic heart disease of native coronary artery with unstable angina pectoris (principal); E78.5 Hyperlipidemia, unspecified; I10 Essential (primary) hypertension; T46.6X5A Adverse effect of antihyperlipidemic and antiarteriosclerotic drugs, initial encounter; Z79.82 Long term (current) use of aspirin; Z79.899 Other long term (current) drug therapy